=== PATIENT | female | born 1980 | race African-American/Black ===

== ENCOUNTER 2021-03-18 16:36 | Emergency (ER) | payer OTHER ==
[~2021-03-18] VITALS: Ht 170.2 cm; Wt 68.2 kg
[2021-03-18] MEDS ORDERED: DICLOFENAC SODIUM PO (18:16)
[2021-03-18] MEDS ORDERED: TAMS-13 PO (18:16)
[2021-03-18] MEDS ORDERED: DICL25 PO (18:17)
[2021-03-18 18:25] LABS: APPEARANCE,URINE CLEAR (CLEAR); BILIRUBIN,URINE NEGATIVE (NEGATIVE); GLUCOSE, URINE (UA) NEGATIVE (NEGATIVE); KETONES,URINE 15 mg/dL (NEGATIVE); LEUKOCYTE ESTERASE ,URINE TRACE (NEGATIVE); NITRATE,URINE POSITIVE (NEGATIVE); OCCULT BLOOD,URINE SMALL (NEGATIVE); PH,URINE 6.5 (5.0-8.0); PROTEIN,URINE NEGATIVE (NEGATIVE); UROBILINOGEN,URINE 0.2 mg/dL (<=1.0)
[2021-03-18 18:47] LABS: BACTERIA,URINE Moderate /HPF (None Seen); RBC,URINE 0-2 /HPF (0-2); SQUAMOUS EPITHELIAL CELL,UR Few /LPF (None Seen)
[2021-03-18 19:58] VITALS: BP 118/78
== END 2021-03-18 20:02 | disposition home or self-care (01) ==
LOC: EMS 16:36
DX: Z71.1 Person with feared health complaint in whom no diagnosis is made (principal)
CPT/HCPCS: 81001; 87086; 99283